=== PATIENT | male | born 1985 | race Caucasian/White ===

== ENCOUNTER 2017-03-26 21:09 | Emergency (ER) | payer BC ==
--- NOTE | 2017-03-26 21:51 | EDPHY ---
H & P Time Seen by Provider: 03/26/17 21:48 HPI/ROS: HPI: Mr. Ferro is a 31 yr, male who presents with Chief Complaint: Throat burning Location: Throat Quality: Burning Duration: Since Thursday (4 days) Signs and Symptoms: No fever, no sore throat, no swollen glands, no ear pain, no dysphagia, no dysphonia, no trismus, no globus sensation, no indigestion Timing: Sudden, constant Severity: Mild to moderate Context: Patient presents with anterior throat burning sensation since Thursday that is constant. Patient presented primary care provider Thursday and was placed on oral antibiotics and topical antibiotics for bilateral outer ear infection and given Magic mouthwash. Nontobacco user. Reports that "it hurts to swallow." Still eating 3 meals a day and drinking fluids in between without difficulty. Denies tobacco use/alcohol use. Modifying Factors: Amoxicillin, Magic mouthwash no relief Comment: ROS: Eyes: No blurred vision Respiratory: No shortness of breath, no cough Cardiovascular: No chest pain Gastrointestinal: No nausea, no vomiting no diarrhea Genitourinary: No dysuria Extremities: No myalgias Neurologic: No weakness, no numbness Skin: No rashes Hematologic: No bruising, no bleeding MEDICAL/SURGICAL HISTORY: Generally healthy. Social History: Employed. Smoking Status: Never smoked Physical Exam: CONSTITUTIONAL: Well-appearing adult white male, awake and alert, no obvious distress HEENT: Atraumatic and normocephalic, PERRL, EOMI. Tympanic membranes clear. Oropharynx clear, tonsils 1+ without hypertrophy or erythema. Uvula midline. no exudate and moist pink mucosa. Airway patent. No lymphadenopathy. No meningismus. Cardiovascular: Normal S1/S2, regular rate, regular rhythm, without murmur rub or gallop. PULMONARY/CHEST: Symmetrical and nontender. Clear to auscultation bilaterally Good air movement. No accessory muscle usage. ABDOMEN: Soft, nondistended, nontender, no rebound, no guarding, no peritoneal signs, no masses or organomegaly. No CVAT. EXTREMITIES: 2/2 pulses, no deformities, no clubbing, no cyanosis or edema. NEUROLOGICAL: no focal neuro deficits. GCS 15. Speech clear. SKIN: Warm and dry, no erythema. no rash. Good capillary refill. Constitutional: Initial Vital Signs Temperature (C) 36.4 C 03/26/17 21:11 Heart Rate 51 L 03/26/17 21:11 Respiratory Rate 16 03/26/17 21:11 Blood Pressure 152/111 H 03/26/17 21:11 O2 Sat (%) 98 03/26/17 21:11 O2 Delivery Mode Room Air Allergies/Adverse Reactions: No Known Allergies Allergy (Unverified 03/26/17 21:14) Home Medications: Medication Instructions Recorded Magic Mouthwash 03/26/17 Ofloxacin 0.3% [Ocuflox 0.3%] 03/26/17 Medical Decision Making - Diagnostics Imaging Results: Imaging Impressions Neck CT 03/26/17 22:09 Impression: No acute abnormality. Dr. Thompson discussed these findings by telephone with Ana Paula Aamya at 2016 23:14. ED Course/Re-evaluation: Strep test negative Afebrile. No systemic signs. Labs and CT neck soft tissue ordered and is grossly unremarkable Labs grossly unremarkable except sodium noted; low normal; taking PO Given IM Decadron with relief reassurance provided and Advised continue supportive care Differential Diagnosis: Burning sensation in throat includes but not limited to Haley infection, Eusebio's angina, lymphadenitis, strep pharyngitis, GERD. - Data Points Laboratory Results: Laboratory Results 03/26/17 22:15 03/26/17 22:15 03/26/17 03/26/17 03/26/17 Unknown 22:15 22:15 WBC 6.13 10^3/uL 10^3/uL (3.80-9.50) RBC 5.18 10^6/uL 10^6/uL (4.40-6.38) Hgb 15.1 g/dL g/dL (13.7-17.5) Hct 43.8 % % (40.0-51.0) MCV 84.6 fL fL (81.5-99.8) MCH 29.2 pg pg (27.9-34.1) MCHC 34.5 g/dL g/dL (32.4-36.7) RDW 12.1 % % (11.5-15.2) Plt Count 213 10^3/uL 10^3/uL (150-400) MPV 10.3 fL fL (8.7-11.7) Neut % (Auto) 46.5 % % (39.3-74.2) Lymph % (Auto) 43.2 % % (15.0-45.0) [place] % (Auto) 7.5 % % (4.5-13.0) Eos % (Auto) 1.6 % % (0.6-7.6) Baso % (Auto) 1.0 % % (0.3-1.7) Nucleat RBC Rel Count 0.0 % % (0.0-0.2) Absolute Neuts (auto) 2.85 10^3/uL 10^3/uL (1.70-6.50) Absolute Lymphs (auto) 2.65 10^3/uL 10^3/uL (1.00-3.00) Absolute Monos (auto) 0.46 10^3/uL 10^3/uL (0.30-0.80) Absolute Eos (auto) 0.10 10^3/uL 10^3/uL (0.03-0.40) Absolute Basos (auto) 0.06 10^3/uL 10^3/uL (0.02-0.10) Absolute Nucleated RBC 0.00 10^3/uL 10^3/uL (0-0.01) Immature Gran % 0.2 % % (0.0-1.1) Immature Gran # 0.01 10^3/uL 10^3/uL (0.00-0.10) Sodium 130 mEq/L L mEq/L (134-144) Potassium 3.8 mEq/L mEq/L (3.5-5.2) Chloride 92 mEq/L L mEq/L (97-110) Carbon Dioxide 24 mEq/l mEq/l (22-31) Anion Gap 14 mEq/L mEq/L (8-16) BUN 10 mg/dL mg/dL (7-23) Creatinine 0.8 mg/dL mg/dL (0.7-1.3) Estimated GFR > 60 Glucose 95 mg/dL mg/dL (70-100) Calcium 9.3 mg/dL mg/dL (8.5-10.4) Group A Strep Screen Group A Strep DNA Pending 03/26/17 21:00 WBC RBC Hgb Hct MCV MCH MCHC RDW Plt Count MPV Neut % (Auto) Lymph % (Auto) [place] % (Auto) Eos % (Auto) Baso % (Auto) Nucleat RBC Rel Count Absolute Neuts (auto) Absolute Lymphs (auto) Absolute Monos (auto) Absolute Eos (auto) Absolute Basos (auto) Absolute Nucleated RBC Immature Gran % Immature Gran # Sodium Potassium Chloride Carbon Dioxide Anion Gap BUN Creatinine Estimated GFR Glucose Calcium Group A Strep Screen NEGATIVE (NEGATIVE) Group A Strep DNA Medications Given: Discontinued Medications Dexamethasone (Decadron Injection) 10 mg IVP EDNOW ONE Stop: 03/26/17 23:21 Last Admin: 03/26/17 23:24 Dose: 10 mg Departure - Departure Disposition: Home, Routine, Self-Care Clinical Impression: Burning sensation of throat Condition: Good Instructions: Pharyngitis (ED) Referrals: DR AMARI [Other] - 2-3 days, if not improved Alex Lopez MD [Medical Doctor] - 5-7 days, if not improved
[2017-03-26 22:22] LABS: % IMMATURE GRANULYOCYTES 0.2 % (0.0-1.1); ABSOLUTE IMMATURE GRANULOCYTES 0.01 10^3/uL (0.00-0.10); ADD DIFF? NO; ADD MORPH? NO; ADD SCAN? NO; ATYPICAL LYMPHOCYTE FLAG 50 (0-99); FRAGMENT RBC FLAG 0 (0-99); HEMATOCRIT 43.8 % (40.0-51.0); HEMOGLOBIN 15.1 g/dL (13.7-17.5); LEFT SHIFT FLG 0 (0-99); LIPEMIA HEMOLYSIS FLAG 90 (0-99); MEAN CELL HEMOGLOBIN 29.2 pg (27.9-34.1); MEAN CELL HEMOGLOBIN CONCENTR. 34.5 g/dL (32.4-36.7); MEAN CELL VOLUME 84.6 fL (81.5-99.8); MEAN PLATELET VOLUME 10.3 fL (8.7-11.7); PLATELET CLUMPS FLAG 0 (0-99); PLATELET COUNT 213 10^3/uL (150-400); RED BLOOD CELL COUNT 5.18 10^6/uL (4.40-6.38); RED CELL DISTRIBUTION WIDTH 12.1 % (11.5-15.2)
[2017-03-26 22:37] LABS: ANION GAP 14 mEq/L (8-16); CALCIUM 9.3 mg/dL (8.5-10.4); CARBON DIOXIDE 24 mEq/l (22-31); CHLORIDE 92 mEq/L (97-110); CREATININE 0.8 mg/dL (0.7-1.3); GLOMERULAR FILTRATION RATE > 60; GLUCOSE 95 mg/dL (70-100); POTASSIUM 3.8 mEq/L (3.5-5.2); SODIUM 130 mEq/L (134-144)
[2017-03-26] MEDS ORDERED: IOPAMIDOL (ISOVUE-300) 100 ML BTL ONE (22:38)
[2017-03-26] MEDS ORDERED: DEXAMETHASONE 10 MG/ML VIAL IVP ONE (23:20)
[2017-03-26 23:37] VITALS: BP 137/99; PULSE 59; RESP 20; TEMP 98.1; O2SAT 97
== END 2017-03-26 23:37 | disposition home or self-care (01) ==
DX: J39.2 Other diseases of pharynx (principal)
CPT/HCPCS: 96374; J1100; Q9967